=== PATIENT | female | born 1940 | race Caucasian/White ===

== ENCOUNTER 2019-11-08 12:55 | Emergency (ER) | payer OTHER ==
[~2019-11-08] VITALS: Ht 157.5 cm; Wt 53.0 kg
--- NOTE | 2019-11-08 13:30 | NUR ---
PT AMBULATED BACK TO ROOM WITHOUT DIFFICULTY. C/O PAIN TO R HAND & R SHOULDER. BRUISING/SWELLING UNDER L EYE. FAMILY AT BS. Addendum: 11/08/19 at 1351 by HBENSON CORRECTION - PT C/O L HAND PAIN/SWELLING. R SHOULDER PAIN IS CHRONIC PER PT.
--- NOTE | 2019-11-08 13:51 | NUR ---
PT AMBULATED TO BR WITHOUT DIFFICULTY.
--- NOTE | 2019-11-08 13:59 | NUR ---
XR AT BS.
[2019-11-08] MEDS ORDERED: DIPH,PERTUSS(ACELL),TET VAC/PF 0.5 ML IM-VACC ONE ×2 (14:00→16:24)
--- NOTE | 2019-11-08 14:07 | NUR ---
PT TO CT VIA [facility].
--- NOTE | 2019-11-08 15:25 | NUR ---
ERP AT FOR RECHECK.
[2019-11-08] MEDS ORDERED: NEOSPORIN OINT. PKT 1 PACKET ONE (15:38)
--- NOTE | 2019-11-08 15:54 | NUR ---
L ARM VOLAR SPLINT APPLIED BY [employer] SALES REPRESENTATIVE, CMS INTACT. Addendum: 11/08/19 at 1636 by DEBBIE PT DECLINES SLING FOR L ARM.
[2019-11-08 16:29] VITALS: BP 186/134
--- NOTE | 2019-11-08 16:37 | NUR ---
D/C INSTRUCTIONS & F/U APPT RV'WD WITH PT AND DAUGHTER, THEY VERBALIZE UNDERSTANDING. PT AMBULATED OUT OF ED WITH FAMILY WITHOUT DIFFICULTY.
== END 2019-11-08 16:39 | disposition home or self-care (01) ==
LOC: ED 14:33
DX: S62.355A Nondisplaced fracture of shaft of fourth metacarpal bone, left hand, initial encounter for closed fracture (principal); S02.40FA Zygomatic fracture, left side, initial encounter for closed fracture; M25.511 Pain in right shoulder; F17.200 Nicotine dependence, unspecified, uncomplicated; W01.198A Fall on same level from slipping, tripping and stumbling with subsequent striking against other object, initial encounter; Y93.89 Activity, other specified; Y92.009 Unspecified place in unspecified non-institutional (private) residence as the place of occurrence of the external cause; Y99.8 Other external cause status
CPT/HCPCS: 29125; 70486; 90471; 90715; 99284